=== PATIENT | male | born 1945 | race Caucasian/White ===

== ENCOUNTER 2023-01-14 16:58 | Outpatient (OUT) | payer MEDICARE, SELFPAY ==
--- NOTE | 2023-01-14 | XR_ITS ---
The [address] [address] Patient Name: CHANCE LAMAS MRN: [id number] date: 1945 Sex: M Assigned Patient Location: [facility] Current Patient Location: Accession/Order Number: [id number] Exam Date: 01/14/2023 17:13 Report Date: 01/15/2023 07:12 At the request of: FUENTES SHABAZZ Procedure: XR chest 2V PROCEDURE: XR chest 2V DATE: 01/14/2023 4:13 PM CDT COMPARISONS: 10/07/2016 CLINICAL INDICATION: 77 years Male Cough, SOB, Bronchitis FINDINGS: The cardiomediastinal silhouette and pulmonary vasculature are within normal limits. There is slight perihilar and infrahilar increased interstitial markings, right greater than left stable from previous exam probably representing small amount of chronic lung changes. The lungs are otherwise clear. There is no evidence of pleural effusion or pneumothorax. IMPRESSION: Stable chest. No evidence of lung infiltrates. Electronically authenticated by: ALEXANDRO NELSON Date: 01/15/2023 07:12
== END 2023-01-14 16:59 | disposition home or self-care (01) ==
PROVIDERS: PCP Family Medicine; Visit Provider Nurse Practitioner Family
DX: R06.02 Shortness of breath (principal); R42 Dizziness and giddiness
CPT/HCPCS: 71046

== ENCOUNTER 2023-04-09 12:24 | Outpatient (OUT) | payer MEDICARE, SELFPAY ==
--- NOTE | 2023-04-09 13:03 | CA_ITS ---
Patient: CHANCE LAMAS Exam Date: 04/09/2023 : 1945 Gender:M Ordering : DR GLORIA SAUCEDA Admission #: [id number] Family : Order #: [id number] CLICK HERE TO VIEW EXAM ECHOCARDIOGRAM REPORT PROCEDURE: CA ECHO DOPPLER COMPLETE INDICATIONS: Shortness of breath COMPARISON: None. DESCRIPTION: COMPLETE ECHOCARDIOGRAM Real-time transthoracic echocardiography with 2D, M-mode, spectral and color flow Doppler performed. QUALITY: Technical quality was good. LEFT VENTRICLE: Normal chamber size. Normal left ventricular wall thickness. LV EF: Global left ventricular systolic function is normal. Calculated left ventricular ejection fraction is 60%. DIASTOLIC: Grade I diastolic dysfunction. ATRIAL SEPTUM: Inadequately seen. LEFT ATRIUM: Mild dilatation. RIGHT ATRIUM: Moderate dilatation. RIGHT VENTRICLE: Normal chamber size. Normal right ventricular systolic function. TRICUSPID VALVE: Normal mobility and thickness. No stenosis with mild regurgitation. Mild pulmonary hypertension. RVSP 39mmHg MITRAL VALVE: Normal mobility and thickness. No evidence of mitral valve stenosis. There is no mitral annular calcification. Mild to moderate mitral regurgitation. AORTIC VALVE: Normal trileaflet appearance. No visible sclerosis. Normal leaflet mobility. No evidence of aortic valve stenosis. Mild aortic regurgitation. AORTIC ROOT: Normal diameter and appearance. PULMONIC VALVE: Normal thickness and mobility. No stenosis. No regurgitation. PERICARDIUM: No evidence of pericardial effusion. IVC: Collapses with inspirations. Normal size. CONCLUSION: 1. Global left ventricular systolic function is normal; visually estimated ejection fraction is 55 to 60% 2. The right ventricle is normal in size and systolic function 3. Biatrial enlargement 4. 5. Mild diastolic dysfunction 6. Mild tricuspid regurgitation; mildly elevated right ventricular systolic pressure RVSP 39 mmHg 7. Mild to moderate mitral regurgitation 8. Mild aortic valve regurgitation Adult Echocardiography Procedure Report Left Ventricle LVEDD (3.7 - 5.6 cm): 4.58 cm LVESD (2.2 - 4.0 cm): 2.74 cm LVIVS thickness (0.6 - 1.2 cm): 1.06 cm LVPW thickness (0.5 - 1.0 cm): 0.81 cm e': 0.13 m/s E - e': 5.01 LVOT Max Gradient: 2.45 mm[Hg] LVOT Area (cm2): 0.78 m/s Peak Velocity (LVOT): 0.78 m/s Mean Velocity (LVOT): 0.49 m/s LVOT Diameter 2.12 cm Left Ventricular Ejection Fraction: 59.71 % Left Atrium LA Volume Index (2D A2C): 35.45 ml/m2 Left Atrium Systolic Dimension: 4.64 cm Mitral Valve MV E to A Ratio: 0.65 Mitral Valve A-Wave Peak Velocity: 1.00 m/s Mitral Valve E-Wave Peak Velocity: 0.65 m/s Right Ventricle RV Internal Diastolic Dimension: 2.97 cm Aorta AO Root Diam: 2.90 cm Ascending Ao Diam: 3.06 cm Aortic Valve AoV Area (Peak Alexandre): 1.58 cm2, 1.58 cm2 AoV Area (VTI): 1.91 cm2, 1.91 cm2 Deceleration [place]: 1.31 m/s2 Pressure Half-Time: 898.98 ms Peak Velocity(Antegrade Flow): 1.76 m/s Peak Gradient(Antegrade Flow): 12.32 mm[Hg] Mean Velocity(Antegrade Flow): 1.17 m/s Mean Gradient(Antegrade Flow): 6.37 mm[Hg] Velocity Time Integral: 38.59 cm Tricuspid Valve Peak Velocity (Regurgitant Flow): 2.52 m/s, 2.49 m/s, 2.99 m/s Pulmonic Valve Mean Gradient: 2.36 mm[Hg], 1.96 mm[Hg] Mean Velocity: 0.72 m/s, 0.65 m/s Peak Velocity: 1.00 m/s Peak Gradient: 4.13 mm[Hg], 3.87 mm[Hg] Right Atrium Right Atrium Systolic Pressure: 42.31 ml, 42.31 ml Dictated by: Varinder Pendleton M.D. on 04/13/2023 at 14:42 Approved by: Varinder Pendleton M.D. on 04/13/2023 at 14:51
== END 2023-04-09 12:25 | disposition home or self-care (01) ==
LOC: CARD 12:26
PROVIDERS: PCP Family Medicine; Visit Provider Physician Assistant
DX: R06.02 Shortness of breath (principal); R00.1 Bradycardia, unspecified; I45.10 Unspecified right bundle-branch block; I08.3 Combined rheumatic disorders of mitral, aortic and tricuspid valves
CPT/HCPCS: 93306; 93356

== ENCOUNTER 2023-10-03 22:55 | Observation (INO) | payer MEDICARE, SELFPAY ==
[2023-10-03] VITALS (7 sets, daily range): BP systolic 130–170; BP diastolic 72–78; PULSE 55–67; RESP 12–19; TEMP 36.6; O2SAT 96–99; BMI 29.6
--- NOTE | 2023-10-03 23:13 | ECG_ITS ---
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
--- NOTE | 2023-10-03 23:13 | XR_ITS ---
The [address] [address] Patient Name: CHANCE LAMAS MRN: [id number] date: 1945 Sex: M Assigned Patient Location: ED.MAIN Current Patient Location: ER Accession/Order Number: [id number] Exam Date: 10/03/2023 23:26 Report Date: 10/03/2023 23:41 At the request of: MC SINGH Procedure: XR chest 1V XR chest 1V 10/03/2023 10:26 PM CDT: History: stroke Comparison: None. Technique: 1 view chest Findings: The cardiomediastinal silhouette is upper normal. The lungs are clear without infiltrate, effusion, or pneumothorax. The bones are intact. XR/XR chest 1V Impression: No acute cardiopulmonary process. Electronically authenticated by: CHANCE DRUMMOND Date: 10/03/2023 23:41
--- NOTE | 2023-10-03 23:14 | CT_ITS ---
The [address] [address] Patient Name: CHANCE LAMAS MRN: [id number] date: 1945 Sex: M Assigned Patient Location: ER Current Patient Location: ER Accession/Order Number: [id number] Exam Date: 10/03/2023 23:20 Report Date: 10/03/2023 23:50 At the request of: MC SINGH Procedure: CT stroke head/brain wo con EXAMINATION: CT Head without Contrast TECHNIQUE: Multiple axial noncontrast images of the brain were obtained and reformatted according to the standard protocol. QPP DOCUMENTATION: At least one of the following dose reduction techniques was utilized: Iterative reconstruction, and/or Automatic Exposure Control, and/or mA/kV adjustment based on body size. INDICATION: stroke COMPARISON: 03/20/2020 FINDINGS: Intracranial hemorrhage: No CT evidence of intraparenchymal, intraventricular, or extraaxial hemorrhage. Infarct/Vascular: No evidence of acute transcortical infarctions. There are areas of decreased attenuation scattered throughout the supratentorial white matter. Although nonspecific, these findings are commonly associated with chronic small vessel ischemic disease. Intracranial Mass: No evidence of intracranial mass. CSF Spaces: Mild parenchymal atrophy. Calvarium and Scalp: Unremarkable. Mastoid Air Cells: Clear. Paranasal Sinuses: Visualized paranasal sinuses are clear. Orbits: Orbits are unremarkable. CT/CT stroke head/brain wo con IMPRESSION: 1. No CT evidence of acute intracranial abnormalities. If symptoms persist, further assessment MRI can considered. 2. Subtle areas of decreased attenuation scattered throughout the supratentorial white matter nonspecific but most commonly associated with chronic small vessel ischemic disease. Electronically authenticated by: ZANDER ALVAREZ Date: 10/03/2023 23:50
--- NOTE | 2023-10-03 23:15 | ED_ITS ---
HPI - Neuro Symptoms/Deficit General Chief Complaint: Neuro Symptoms/Deficit Stated Complaint: STROKE SYMPTOMS Time Seen by Provider: 10/03/23 23:13 History of Present Illness HPI Narrative: sitting in a chair and developed numbness left arm and left side of his head. Started about an hour ago. States is better now but doesn't feel he has complete control of the left arm return yet. No headache , chest pain or palpitations. States he gait is normal. now lower extremity weakness. no fever Onset (ago): hour(s) Related Data Home Medications ?Medication ?Instructions ?Recorded ?Confirmed aspirin 81 mg capsule 81 mg PO DAILY 10/03/23 10/03/23 losartan 25 mg tablet 25 mg PO DAILY 10/03/23 10/03/23 Previous Rx's ?Medication ?Instructions ?Recorded clopidogrel 75 mg tablet 75 mg PO QD 30 days #30 tabs 10/04/23 famotidine 20 mg tablet 40 mg (2 x 20 mg) PO QD 30 days 10/04/23 #30 tabs Allergies Allergy/AdvReac Type Severity Reaction Status Date / Time Penicillins Allergy Unknown Verified 10/03/23 23:08 Review of Systems ROS Status of ROS 10 or more systems reviewed and unremark able except as noted in history and below PFSH [facility] Medical History (Updated 10/04/23 @ 12:41 by Jessica Bearden DO) Hypertension ?I10 - Essential (primary) hypertension (ICD-10) Prostate cancer ?C61 - Malignant neoplasm of prostate (ICD-10) Surgical History H/O vasectomy ?Z98.52 - Vasectomy status (ICD-10) Bunion of left foot ?M21.612 - Bunion of left foot (ICD-10) [place] teeth removed ?K08.409 - Partial loss of teeth, unspecified cause, unspecified class (ICD- 10) Hx of prostatectomy ?Z90.79 - Acquired absence of other genital organ(s) (ICD-10) Family History Father Family history of CHF (congestive heart failure) Mother Family history of cancer Family history of hypertension Sister Family history of diabetes mellitus Grandmother Family history of stroke Social History Within the past year, how often did you have a drink containing alcohol: never Score interpretation: A score less than 4 is consistent with normal alcohol consumption. Smoking status: Former smoker Non-prescribed substance use: denies use Previous occupational history: retired Highest level of school completed/degree received: Bachelor's degree Are you now , , , , never or living with a partner: In a typical week, how many times do you talk on the telephone with family, friends, or neighbors: 3 or more times per week How often do you get together with friends or relatives: 3 or more times per week How often do you attend sabianism or caodaism services: 4 or more times per year Little interest or pleasure in doing things: not at all Feeling down, depressed, or hopeless: not at all Feel stressed/tense/nervous/anxious/difficulty sleeping: not at all Do you think of yourself as: straight/heterosexual Gender Identity: male Exam Constitutional Vital Signs, click to edit/add: Last Vital Signs Temp 98 F 10/04/23 11:29 Pulse 58 L 10/04/23 16:00 Resp 20 10/04/23 11:29 BP 152/79 H 10/04/23 11:29 Pulse Ox 95 10/04/23 11:29 O2 Del Method Room Air 10/04/23 11:29 Common normals: no apparent distress, average body habitus, oriented x3, no limitations, healthy appearing and alert [facility] Common normals: normocephalic and head/scalp atraumatic Eye Common normals: PERRL and conjunctivae normal Respiratory Common normals: normal respiratory effort, no retractions, no use of accessory muscles and clear to auscultation bilaterally Cardio Common normals: regular rate, regular rhythm, S1 normal heart sound and S2 normal heart sound GI Common normals: Normal to inspection, nondistended, normoactive bowel sounds present, soft to palpation and non-tender Extremity Common normals: normal to inspection and full ROM Neuro Common normals: oriented x3, CN's II-XII intact bilaterally, moves all extremities and no focal motor deficits (mild ataxia left arm) Psych Appearance: grossly normal Course Course Hospital Course: patient is a very pleasant 77-year-old male with past medical history of HTN, and Prostate cancer. He reports that last night he was watching TV and started to feel that his left arm and left face started to feel numb. he denies putting any pressure on his arms and also felt that his speech and thought process was quite foggy. His agreed to take him to the emergency room for possible stroke workup. At the time of the Emergency Room visit patient did have some decreased strength in the left hand. Initial CTA of the head and neck were negative. Patient denies having a prior stroke history. He does state that he gets dizzy sometimes when he gets up quickly from a bending position. He completed a prostatectomy with chemotherapy and radiation approximately two years ago and has been in a good state of health since then. Kameron states that his cholesterol is always been borderline but cannot tolerate statin medications. He was admitted to the hospitalist service for further treatment, [facility] stroke team was notified last night . Recommended a load of Plavix, and continuing on Plavix, aspirin daily. MRI obtained this morning shows a acute ischemic stroke in the right frontal and parietal lobe. Echocardiogram, carotid artery Dopplers are within normal limits. Patient notes that his left upper arm symptoms have resolved at the time of discharge. He is alert and oriented ?3, no apparent speech defects noted on exam, passed speech and PT/OT evaluations . I discussed all findings today with and patient. I have reviewed Telestroke, lito and Dr. Kelsey notes. They recommended 10 day event monitor that they will mail him and also contact him for close follow up. He is to remain on aspirin and plavix for 3 months, then aspirin only indefinitely. All rx's sent to pharmacy. He is to return to the ED with any worsening signs or symptoms. Vital Signs Vital signs: Vital Signs Temperature 97.8 F 10/03/23 23:08 Pulse Rate 56 L 10/03/23 23:08 Respiratory Rate 18 10/03/23 23:08 Blood Pressure 170/78 H 10/03/23 23:08 Pulse Oximetry 97 10/03/23 23:08 Oxygen Delivery Method Room Air 10/03/23 23:08 Temperature 98 F 10/04/23 11:29 Pulse Rate 58 L 10/04/23 16:00 Respiratory Rate 20 10/04/23 11:29 Blood Pressure 152/79 H 10/04/23 11:29 Pulse Oximetry 95 10/04/23 11:29 Oxygen Delivery Method Room Air 10/04/23 11:29 MDM - Neuro Symptoms/Deficit MDM Narrative Medical decision making narrative: presents with stroke symptoms that started about an hour ago. describes numbness of the left arm and left side of his head. Sensation has returned but does not feel use of the left arm is normal. Control is not as normal as it usually is. Has mild ataxia of the left arm. NIH score 1. CT stroke brain ordered. Patient re examined and his exam is normal. CT brain without acute findings. Discussed with stroke physician at [facility] ([place], [place]) who recommended loading dose of plavix 300mg and CTA brain and neck. CTA neck and brain return unremarkable. Discussed with hospitalist and patient accepted for obs admission Lab Data Labs: Lab Results 10/03/23 10/03/23 Range/Units 23:20 23:34 WBC 6.1 (4.0-11.0) 10^3/uL RBC 4.27 L (4.70-6.10) 10^6/uL Hgb 13.6 L (14.0-18.0) g/dL Hct 40.2 L (42.0-54.0) % MCV 94.1 H (80.0-94.0) fL MCH 31.9 (25.9-34.0) pg MCHC 33.8 (29.9-35.2) g/dL RDW 13.4 (11.0-15.0) % Plt Count 222 (150-450) 10^3/uL MPV 9.0 L (9.5-13.5) fL Neut % (Auto) 61.2 (43.0-75.0) % Lymph % (Auto) 22.7 (20.5-60.0) % Lawrence % (Auto) 12.4 H (1.7-12.0) % Eos % (Auto) 2.8 (0.9-7.0) % Baso % (Auto) 0.7 (0.2-2.0) % Neut # (Auto) 3.8 (1.4-6.5) 10^3/uL Lymph # (Auto) 1.4 (1.2-3.8) 10^3/uL Lawrence # (Auto) 0.8 (0.3-0.8) 10^3/uL Eos # (Auto) 0.2 (0.0-0.7) 10^3/uL Baso # (Auto) 0.0 (0.0-0.1) 10^3/uL Abs Immat Gran (auto) 0.01 (0.00-0.03) 10^3/uL Imm/Tot Granulo (auto) 0.2 (0.0-0.5) % Sodium 139 (136-145) mmol/L Potassium 4.5 (3.5-5.1) mmol/L Chloride 105 (98-107) mmol/L Carbon Dioxide 28.5 (21.0-32.0) mmol/L Anion Gap 10.0 BUN 20.0 H (7.0-18.0) mg/dL Creatinine 0.95 (0.70-1.30) mg/dL Est GFR ( Amer) >60 (>=60) Est GFR (Non-Af Amer) >60 (>=60) BUN/Creatinine Ratio 21.1 Glucose 101 (74-106) mg/dL Calcium 8.9 (8.5-10.1) mg/dL Troponin I High Sens 6.2 (4.0-76.1) pg/mL POC Glucose 130 H (74-106) mg/dL Discharge Plan Discharge Chief Complaint: Neuro Symptoms/Deficit Clinical Impression: TIA (transient ischemic attack) Patient Disposition: Admitted as Observation Discharge Date/Time: 10/04/23 02:30
[2023-10-03 23:28] LABS: Basophils Percent Auto 0.7 % (0.2-2.0); Eosinophils Absolute Auto 0.2 10^3/uL (0.0-0.7); Eosinophils Percent Auto 2.8 % (0.9-7.0); Hematocrit 40.2 % (42.0-54.0); Hemoglobin 13.6 g/dL (14.0-18.0); Immature Granulocytes Abs Auto 0.01 10^3/uL (0.00-0.03); Immature Granulocytes Pct Auto 0.2 % (0.0-0.5); Lymphocytes Absolute Auto 1.4 10^3/uL (1.2-3.8); Lymphocytes Percent Auto 22.7 % (20.5-60.0); Mean Corpuscular HGB Conc 33.8 g/dL (29.9-35.2); Mean Corpuscular Hemoglobin 31.9 pg (25.9-34.0); Mean Corpuscular Volume 94.1 fL (80.0-94.0); Monocytes Absolute Auto 0.8 10^3/uL (0.3-0.8); Monocytes Percent Auto 12.4 % (1.7-12.0); Neutrophils Absolute Auto 3.8 10^3/uL (1.4-6.5); Neutrophils Percent Auto 61.2 % (43.0-75.0); Platelet Count 222 10^3/uL (150-450); Red Blood Count 4.27 10^6/uL (4.70-6.10); Red Cell Distribution Width 13.4 % (11.0-15.0); White Blood Count 6.1 10^3/uL (4.0-11.0)
[2023-10-03 23:35] LABS: Glucometer 130 mg/dL (74-106)
[2023-10-03 23:48] LABS: BUN Creatinine Ratio 21.1; Calcium 8.9 mg/dL (8.5-10.1); Carbon Dioxide 28.5 mmol/L (21.0-32.0); Chloride 105 mmol/L (98-107); Estimated GFR (African America >60 (>=60); Estimated GFR (Non-African Ame >60 (>=60); Glucose 101 mg/dL (74-106); Potassium 4.5 mmol/L (3.5-5.1); Sodium 139 mmol/L (136-145); Troponin I High Sensitivity 6.2 pg/mL (4.0-76.1)
[2023-10-04] VITALS (23 sets, daily range): BP systolic 126–168; BP diastolic 63–88; PULSE 52–63; RESP 13–24; TEMP 36.3–36.6; O2SAT 95–100; BMI 30.5
--- NOTE | 2023-10-04 00:25 | CT_ITS ---
The [address] [address] Patient Name: CHANCE LAMAS MRN: [id number] date: 1945 Sex: M Assigned Patient Location: ER Current Patient Location: Accession/Order Number: [id number] Exam Date: 10/04/2023 00:45 Report Date: 10/04/2023 01:55 At the request of: MC SINGH Procedure: CT angio head EXAM: CT angio head, CT angio neck CT angio head, CT angio neck 10/03/2023 11:45 PM CDT: History: TIA Carotid artery stenosis and occlusion. Stroke. Neurological symptoms and deficits. Comparison: None. Technique: IV contrast-enhanced CTA imaging of the head and neck was performed. Multiplanar 3-D MIP reformatted images are provided from the acquired data set. Percent vascular stenoses are calculated per NASCENT criteria. This CT exam was performed using one or more of the following dose reduction techniques: Automated exposure control, adjustment of the mA and/or KV according to patient size, or use of iterative reconstruction technique. Findings: CTA NECK: The lung apices are clear. The nonvascular soft tissues of the neck demonstrate no acute abnormality. The aortic arch is intact with a 3 vessel configuration. Bilateral common carotid arteries and carotid bifurcation are patent without stenosis. There is mild atherosclerotic plaque in the carotid bifurcation bilaterally as well as within the proximal cervical internal carotid arteries bilaterally. There is no hemodynamically significant carotid artery stenosis. The left vertebral artery is dominant. The vertebral arteries are patent bilaterally without significant stenosis or dissection. CTA HEAD: The bilateral intracranial internal carotid, middle cerebral, and anterior cerebral arteries are all smooth and patent without stenosis, aneurysm, or large vessel occlusion. The vertebral arteries unite to form a normal caliber basilar artery. The posterior cerebral arteries are smooth and patent bilaterally without stenosis, aneurysm, or large vessel occlusion. CT/CT angio head Impression: No significant abnormality of the great vessels of the head or neck. Electronically authenticated by: CHANCE DRUMMOND Date: 10/04/2023 01:55
--- NOTE | 2023-10-04 00:25 | CT_ITS ---
The [address] [address] Patient Name: CHANCE LAMAS MRN: [id number] date: 1945 Sex: M Assigned Patient Location: ER Current Patient Location: Accession/Order Number: [id number] Exam Date: 10/04/2023 00:45 Report Date: 10/04/2023 01:55 At the request of: MC SINGH Procedure: CT angio neck EXAM: CT angio head, CT angio neck CT angio head, CT angio neck 10/03/2023 11:45 PM CDT: History: TIA Carotid artery stenosis and occlusion. Stroke. Neurological symptoms and deficits. Comparison: None. Technique: IV contrast-enhanced CTA imaging of the head and neck was performed. Multiplanar 3-D MIP reformatted images are provided from the acquired data set. Percent vascular stenoses are calculated per NASCENT criteria. This CT exam was performed using one or more of the following dose reduction techniques: Automated exposure control, adjustment of the mA and/or KV according to patient size, or use of iterative reconstruction technique. Findings: CTA NECK: The lung apices are clear. The nonvascular soft tissues of the neck demonstrate no acute abnormality. The aortic arch is intact with a 3 vessel configuration. Bilateral common carotid arteries and carotid bifurcation are patent without stenosis. There is mild atherosclerotic plaque in the carotid bifurcation bilaterally as well as within the proximal cervical internal carotid arteries bilaterally. There is no hemodynamically significant carotid artery stenosis. The left vertebral artery is dominant. The vertebral arteries are patent bilaterally without significant stenosis or dissection. CTA HEAD: The bilateral intracranial internal carotid, middle cerebral, and anterior cerebral arteries are all smooth and patent without stenosis, aneurysm, or large vessel occlusion. The vertebral arteries unite to form a normal caliber basilar artery. The posterior cerebral arteries are smooth and patent bilaterally without stenosis, aneurysm, or large vessel occlusion. CT/CT angio neck Impression: No significant abnormality of the great vessels of the head or neck. Electronically authenticated by: CHANCE DRUMMOND Date: 10/04/2023 01:55
[2023-10-04] MEDS: CLOPIDOGREL BISULFATE 75 MG TABLET 300 MG PO (00:32)
[2023-10-04 05:33] LABS: Basophils Absolute Auto 0.1 10^3/uL (0.0-0.1); Basophils Percent Auto 1.1 % (0.2-2.0); Eosinophils Absolute Auto 0.2 10^3/uL (0.0-0.7); Eosinophils Percent Auto 3.5 % (0.9-7.0); Hematocrit 38.9 % (42.0-54.0); Immature Granulocytes Abs Auto 0.01 10^3/uL (0.00-0.03); Immature Granulocytes Pct Auto 0.2 % (0.0-0.5); Lymphocytes Absolute Auto 1.2 10^3/uL (1.2-3.8); Lymphocytes Percent Auto 25.9 % (20.5-60.0); Mean Corpuscular HGB Conc 33.4 g/dL (29.9-35.2); Mean Corpuscular Hemoglobin 31.3 pg (25.9-34.0); Mean Corpuscular Volume 93.5 fL (80.0-94.0); Mean Platelet Volume 9.3 fL (9.5-13.5); Monocytes Absolute Auto 0.6 10^3/uL (0.3-0.8); Monocytes Percent Auto 13.2 % (1.7-12.0); Neutrophils Absolute Auto 2.6 10^3/uL (1.4-6.5); Neutrophils Percent Auto 56.1 % (43.0-75.0); Platelet Count 217 10^3/uL (150-450); Red Blood Count 4.16 10^6/uL (4.70-6.10); Red Cell Distribution Width 13.4 % (11.0-15.0); White Blood Count 4.6 10^3/uL (4.0-11.0)
[2023-10-04 05:59] LABS: Alanine Aminotransferase 20 U/L (16-63); Albumin Level 3.1 g/dL (3.4-5.0); Alkaline Phosphatase 104 U/L (46-116); Anion Gap 14.5; Aspartate Amino Transferase 21 U/L (15-37); BUN Creatinine Ratio 23.1; Bilirubin Total 0.3 mg/dL (0.2-1.0); Calcium 8.5 mg/dL (8.5-10.1); Carbon Dioxide 25.6 mmol/L (21.0-32.0); Chloride 105 mmol/L (98-107); Chol HDL Ratio 3.7; Cholesterol 144 mg/dL (<=200); Estimated GFR (African America >60 (>=60); Estimated GFR (Non-African Ame >60 (>=60); Globulin 3.1 g/dL; Glucose 89 mg/dL (74-106); HDL Cholesterol 39 mg/dL (40-60); Potassium 4.1 mmol/L (3.5-5.1); Sodium 141 mmol/L (136-145); Thyroid Stimulating Hormone 2.919 uIU/mL (0.358-3.740); Total Protein 6.2 g/dL (6.4-8.2); Triglycerides 71 mg/dL (<=150); VLDL CHOLESTEROL 14.2 mg/dL
[2023-10-04 06:01] LABS: Estimated Average Glucose 108 mg/dL; Glycohemoglobin A1C 5.4 % (4.5-6.2)
--- NOTE | 2023-10-04 08:00 | MR_ITS ---
The [address] [address] Patient Name: CHANCE LAMAS MRN: [id number] date: 1945 Sex: M Assigned Patient Location: MS Current Patient Location: MS Accession/Order Number: [id number] Exam Date: 10/04/2023 07:45 Report Date: 10/04/2023 08:45 At the request of: SHANTA HALL Procedure: MR head/brain wo con MR head/brain wo con, 10/04/2023 7:45 AM EDT INDICATION: TIA r/o CVA COMPARISON: Prior CT and CTA of the head dated 10/03/2023 and changes follow up axis 10/04/2023 TECHNIQUE: Multiplanar, multisequential MRI images of brain were obtained without injection of contrast. FINDINGS: The cerebral sulci as well as ventricular system are appropriate for age. There are foci of restricted diffusion in the right frontal and parietal lobe in pre and postcentral gyri most likely consistent with acute nonhemorrhagic CVA. Hyperintensities on T2 and FLAIR images in the cassidy radiata and centrum semiovale with sparing of U fibers are nonspecific, statistically most likely consistent with microvascular ischemic changes. There is no intracranial mass, mass effect, midline shift, intra or extra-axial fluid collection or large hemorrhage. Normal flow-void in the intracranial vessels is noted. The visualized portions of orbits, mastoid air cells as well as paranasal sinuses are unremarkable. MR/MR head/brain wo con IMPRESSION: Foci of acute nonhemorrhagic CVA in the right frontal and parietal lobes in the pre and postcentral gyri. Electronically authenticated by: ELLA MAURER Date: 10/04/2023 08:45
--- NOTE | 2023-10-04 08:15 | P.HP_ITS ---
HPI H&P: HPI History of Present Illness Chief complaint: TIA Narrative: patient is a very pleasant 77-year-old male with past medical history of HTN, and Prostate cancer. He reports that last night he was watching TV and started to feel that his left arm and left face started to feel numb. he denies putting any pressure on his arms and also felt that his speech and thought process was quite foggy. His agreed to take him to the emergency room for possible stroke workup. At the time of the Emergency Room visit patient did have some decreased strength in the left hand. Initial CTA of the head and neck were negative. Patient denies having a prior stroke history. He does state that he gets dizzy sometimes when he gets up quickly from a bending position. He completed a prostatectomy with chemotherapy and radiation approximately two years ago and has been in a good state of health since then. Kameron states that his cholesterol is always been borderline but cannot tolerate statin medications. He was admitted to the hospitalist service for further treatment,[facility] stroke team was notified last night . Recommended a load of Plavix, and continuing on Plavix, aspirin daily. MRI obtained this morning shows a acute ischemic stroke in the right frontal and parietal lobe. Echocardiogram, carotid artery Dopplers are pending at this time. Patient notes that his left upper arm symptoms have resolved this morning. He is alert and oriented ?3, no apparent speech defects noted on exam. I discussed findings of MRI with patient. And we will proceed with tell us stroke evaluation. Opioid HPI Opioid Management Most Recent Opioid Data: Last Pain Assessment 10/04/23 11:53 Last ORT Total Score 0 10/04/23 02:37 Last ORT Risk Category Low Risk 10/04/23 02:37 Review of Systems ROS Narrative ROS: a complete review of systems were reviewed with patient and are positive as below or listed in History of Chief Complaint. General: no fever, chills, night sweats Head: no headache, trauma, visual changes, nausea or vomiting Skin: no reported rashes, itching or sores Eyes: no blurriness of vision Ears: no reported hearing loss, vertigo, earache, or tinnitus Throat: no sore throat, hoarseness, swelling of neck, or tongue pain Heart: no chest pain Lungs: no shortness of breath or cough GI: no diarrhea or vomiting/nausea Urinary: no urinary urgency, frequency or pain Neuro: numbness and tingling of the left hand/arm HEM: no bleeding issues or bruising ENDO: no thyroid problems Psych: no anxiety or depression PFSH PFSH Medical History (Updated 10/04/23 @ 12:41 by Jessica Bearden DO) Hypertension ?I10 - Essential (primary) hypertension (ICD-10) Prostate cancer ?C61 - Malignant neoplasm of prostate (ICD-10) Surgical History H/O vasectomy ?Z98.52 - Vasectomy status (ICD-10) Bunion of left foot ?M21.612 - Bunion of left foot (ICD-10) [place] teeth removed ?K08.409 - Partial loss of teeth, unspecified cause, unspecified class (ICD- 10) Hx of prostatectomy ?Z90.79 - Acquired absence of other genital organ(s) (ICD-10) Family History Father Family history of CHF (congestive heart failure) Mother Family history of cancer Family history of hypertension Sister Family history of diabetes mellitus Grandmother Family history of stroke Social History Within the past year, how often did you have a drink containing alcohol: never Score interpretation: A score less than 4 is consistent with normal alcohol consumption. Smoking status: Former smoker Non-prescribed substance use: denies use Previous occupational history: retired Highest level of school completed/degree received: Bachelor's degree Are you now , , , , never or living with a partner: In a typical week, how many times do you talk on the telephone with family, friends, or neighbors: 3 or more times per week How often do you get together with friends or relatives: 3 or more times per week How often do you attend congregation or zoroastrian services: 4 or more times per year Little interest or pleasure in doing things: not at all Feeling down, depressed, or hopeless: not at all Feel stressed/tense/nervous/anxious/difficulty sleeping: not at all Do you think of yourself as: straight/heterosexual Gender Identity: male Meds Home Medications and Allergies Home Medications ?Medication ?Instructions ?Recorded ?Confirmed ?Type aspirin 81 mg capsule 81 mg PO DAILY 10/03/23 10/03/23 History losartan 25 mg tablet 25 mg PO DAILY 10/03/23 10/03/23 History omeprazole magnesium 20 mg 20 mg PO DAILY 10/04/23 10/04/23 History tablet,delayed release (Prilosec OTC) Allergies Allergy/AdvReac Type Severity Reaction Status Date / Time Penicillins Allergy Unknown Verified 10/03/23 23:08 Exam Narrative Exam Narrative: General: Patient is alert, and oriented to person, place and time with normal affect, proper hygiene Skin: no visible rashes, or ulcers Head: atraumatic, acephalic Eyes: PERRLA, no nystagmus present, conjunctiva clear, no scleral icterus Ears: normal gross auditory acuity Nose: symmetric, no discharge, no maxillary or frontal sinus tenderness Neck: no masses palpated, normal thyroid, no JVD or audible carotid bruits Heart: Normal rate and rhythm, no murmurs/rubs/gallops Lungs: no audible wheezes, crackles and normal breath sounds all lung santamaria Abdomen: Normal audible bowel sounds, no distension, No palpable masses, no organomegaly, no rebound/guarding/ or rigidity Musculoskeletal: no swelling bilateral lower extremities Vascular: Normal carotid, radial, femoral, posterior tibial, and dorsalis pedis pulses Lymph: no supraclavicular, axillary, or anterior/posterior cervical adenopathy Neuro: CN II-X grossly intact, normal sensation upper and lower extremities with no pronator drift, 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 Constitutional Vital Signs, click to edit/add: Last Vital Signs Temp 97.3 F L 10/04/23 07:37 Pulse 53 L 10/04/23 07:37 Resp 20 10/04/23 07:37 BP 154/79 H 10/04/23 07:37 Pulse Ox 97 10/04/23 07:37 O2 Del Method Room Air 10/04/23 07:37 Results Labs Labs: Short CBC 10/03/23 10/04/23 Range/Units 23:20 04:18 WBC 6.1 4.6 (4.0-11.0) 10^3/uL Hgb 13.6 L 13.0 L (14.0-18.0) g/dL Hct 40.2 L 38.9 L (42.0-54.0) % Plt Count 222 217 (150-450) 10^3/uL BMP 10/03/23 10/04/23 23:20 04:18 Sodium 139 141 Potassium 4.5 4.1 Chloride 105 105 Carbon Dioxide 28.5 25.6 BUN 20.0 H 21.0 H Creatinine 0.95 0.91 Glucose 101 89 Calcium 8.9 8.5 Liver Function 10/04/23 Range/Units 04:18 Total Bilirubin 0.3 (0.2-1.0) mg/dL AST 21 (15-37) U/L ALT 20 (16-63) U/L Alkaline Phosphatase 104 (46-116) U/L Albumin 3.1 L (3.4-5.0) g/dL Assessment and Plan Assessment and Plan (1) Ischemic cerebral stroke due to small artery occlusion: Assessment and Plan: patient was admitted to telemetry, patient received a Plavix load and will continue Plavix 75 mg once a day, along with aspirin. Was going to give patient Lipitor, but patient says he has tried several statins and did not tolerate and does not want to take it. Fasting lipid panel showed total cholesterol one forty-four, LDL ninety-one and HDL thirty-nine and triglycerides of seventy-one. Hemoglobin A1c was 5.4. BUN/creatinine were within normal limits. Echocardiogram is pending. CTA of head and neck were within normal limits. MRI findings of an acute ischemic stroke in the right frontal and parietal lobes seen on MRI. Carotid artery ultrasounds showed no significant stenosis. We'll follow with telestroke and appreciate their recommendations. (2) Hypertension: Assessment and Plan: blood pressures have been in the 150s over 70s, continue losartan Qualifiers: Hypertension type: primary hypertension Qualified Code(s): I10 - Essential (primary) hypertension (3) Prostate cancer: Assessment and Plan: patient has been in remission for two years. Plan patient is full code Patient is in observation status and is not expected to cross more than two midnights for his necessary medical care.
[2023-10-04 08:49] LABS: Troponin I High Sensitivity 6.6 pg/mL (4.0-76.1)
[2023-10-04] MEDS: ASPIRIN 81 MG TABLET.DR PO (09:01)
[2023-10-04] MEDS: LOSARTAN POTASSIUM 25 MG TABLET PO (09:01)
--- NOTE | 2023-10-04 10:22 | PC.NURSE ---
[facility] Telestroke [facility] called. Nurse states that pt is on their list, and they will call you when they are available to see pt on screen.
--- NOTE | 2023-10-04 10:58 | CA_ITS ---
Patient Name: CHANCE LAMAS MR#: [id number] : 1945 Exam Date: 10/04/2023 Ordering Doctor: Jessica Bearden . ECHOCARDIOGRAM REPORT PROCEDURE: CA ECHO LIMITED INDICATIONS: Acute stroke COMPARISON: None. DESCRIPTION: Limited ECHOCARDIOGRAM Real-time transthoracic echocardiography with 2D and M-mode performed. QUALITY: Technical quality was good. Limited echocardiogram per physician order. LEFT VENTRICLE: Normal chamber size. Proximal septal hypertrophy (sigmoid septum). LV EF: Normal left ventricular ejection fraction, (>55%). DIASTOLIC: ATRIAL SEPTUM: Intact atrial septum. Agitated saline contrast does not reveal an intra-cardiac shunt. LEFT ATRIUM: Mildly dilated. RIGHT ATRIUM: Mildly dilated. RIGHT VENTRICLE: Normal chamber size. TRICUSPID VALVE: Normal mobility and thickness. MITRAL VALVE: Normal mobility and thickness. AORTIC VALVE: Normal trileaflet appearance. Normal leaflet mobility. AORTIC ROOT: Normal diameter and appearance. PULMONIC VALVE: Normal thickness and mobility. PERICARDIUM: No evidence of pericardial effusion. IVC: Collapses with inspirations. IVC is normal in size. PLEURA: CONCLUSION: 1. Normal ventricular systolic function. LVEF is 55-60%. 2. Mild biatrial dilatation. 3. No evidence of intracardiac shunt by agitated saline contrast injections. 4. Limited study performed with no Doppler interrogation, as requested. Adult Echocardiography Procedure Report Left Ventricle LVEDD (3.7 - 5.6 cm): 4.30 cm LVESD (2.2 - 4.0 cm): 2.54 cm LVIVS thickness (0.6 - 1.2 cm): 1.51 cm LVPW thickness (0.5 - 1.0 cm): 0.82 cm LVOT Diameter 2.28 cm Left Atrium LA Volume Index (2D A2C): 26.23 ml/m2 Left Atrium Systolic Dimension: 3.88 cm Mitral Valve Right Ventricle Aorta AO Root Diam: 3.10 cm Ascending Ao Diam: 3.04 cm Aortic Valve Tricuspid Valve Pulmonic Valve Right Atrium Right Atrium Systolic Pressure: 28.28 ml, 28.28 ml Dictated by: Erasto Stephens M.D. on 10/04/2023 at 14:31 Approved by: Erasto Stephens M.D. on 10/04/2023 at 14:34
--- NOTE | 2023-10-04 11:00 | US_ITS ---
[address] [address] Patient Name: CHANCE LAMAS MRN: [id number] date: 1945 Sex: M Assigned Patient Location: [place] Current Patient Location: [place] Accession/Order Number: [id number] Exam Date: 10/04/2023 11:00 Report Date: 10/04/2023 11:56 At the request of: PATRICK STREETER Procedure: US carotid duplex BI EXAMINATION: US carotid duplex BI HISTORY: TIA COMPARISON: No relevant comparison available. TECHNIQUE: Duplex Doppler ultrasound analysis of carotid and vertebral arteries. . Bilateral carotid arterial duplex examination was performed using B-mode, color flow and spectral analysis. Carotid stenosis is reported according to validated velocity parameters, similar to NASCET criteria. FINDINGS: RIGHT CAROTID ARTERY Moderate atherosclerotic plaque Subclavian: PSV: 127.6 cm/s cm/s EDV: 0.0 cm/s cm/s CCA: Prox: PSV: 88.8 cm/s cm/s EDV: 11.1 cm/s cm/s Mid: PSV: 81.4 cm/s cm/s EDV: 11.5 cm/s cm/s Distal: PSV: 78.8 cm/s cm/s EDV: 10.2 cm/s cm/s BULB: PSV: 64.6 cm/s cm/s EDV: 16.7 cm/s cm/s ICA: Prox: PSV: 119.4 cm/s cm/s EDV: 32.1 cm/s cm/s Mid: PSV: 117.7 cm/s cm/s EDV: 30.5 cm/s cm/s Distal: PSV: 147.6 cm/s cm/s EDV: 29.4 cm/s cm/s ECA: PSV: 113.4 cm/s cm/s EDV: 0.0 cm/s cm/s VERTEBRAL: PSV: 52.5 cm/s cm/s EDV: 9.8 cm/s cm/s, antegrade ICA/CCA ratio: PSV: 1.9 EDV: 2.9 LEFT CAROTID ARTERY moderate atherosclerotic plaque Subclavian: PSV: 137.2 cm/s cm/s EDV: 0.0 cm/s CCA: Prox: PSV: 125.3 cm/s cm/s EDV: 16.9 cm/s Mid: PSV: 87.5 cm/s cm/s EDV: 12.4 cm/s Distal: PSV: 87.5 cm/s cm/s EDV: 12.4 cm/s BULB: PSV: 72.0 cm/s cm/s EDV: 12.4 cm/s ICA: Prox: PSV: 61.6 cm/s cm/s EDV: 17.6 cm/s Mid: PSV: 90.0 cm/s cm/s EDV: 22.8 cm/s Distal: PSV: 75.8 cm/s cm/s EDV: 18.9 cm/s ECA: PSV: 97.8 cm/s cm/s EDV: 0.0 cm/s VERTEBRAL: PSV: 57.7 cm/s cm/s EDV: 16.3 cm/s , antegrade ICA/CCA ratio: PSV: 1.0 EDV: 1.8 US/US carotid duplex BI IMPRESSION: 0-49% flow stenosis bilateral internal carotid arteries Spectral Doppler US Thresholds (Reference: Angelito EG, et al. Radiology 2000; 214:247-252) Stenosis (%) PSV (cm/sec) VICA/VCCA 0-49 <150 <2.5 50-69 150-225 2.5-4.0 >70 >225 >4.0 Electronically authenticated by: RAJEEV BANDA Date: 10/04/2023 11:56
--- NOTE | 2023-10-04 11:34 | CM.NOTE ---
Rounds made with Dr. Bearden, discussed with pt about MRI findings and consult for telestroke today for further recommendations. PT, OT and speech will also evaluate pt.
[2023-10-04] MEDS: FAMOTIDINE 20 MG TABLET 40 MG PO (14:25)
--- NOTE | 2023-10-04 15:58 | P.DS_ITS ---
DS: Providers Provider Date of admission: 10/04/23 02:34 Primary care physician: VIRGEN MADRID Admitting clinician: Jessica Bearden Consults: 10/04/23 Consult to TeleNeurology Routine Reason for consultation: R/O CVA Has provider been notified: Yes Speech Therapy Eval and Treat Routine Reason for consultation: CVA 10/04/23 02:16 Occupational Therapy Eval and Treat Routine Reason for consultation: TIA; left sided numbness Physical Therapy Eval and Treat Routine Reason for consultation: TIA; left sided numbness Discharging clinician: Jessica Bearden DS: Diagnosis Discharge Diagnosis (1) Ischemic cerebral stroke due to small artery occlusion: (2) Hypertension: Qualifiers: Hypertension type: primary hypertension Qualified Code(s): I10 - Essential (primary) hypertension (3) Prostate cancer: DS: Summary Hospital Course Hospital Course: patient is a very pleasant 77-year-old male with past medical history of HTN, and Prostate cancer. He reports that last night he was watching TV and started to feel that his left arm and left face started to feel numb. he denies putting any pressure on his arms and also felt that his speech and thought process was quite foggy. His agreed to take him to the emergency room for possible stroke workup. At the time of the Emergency Room visit patient did have some decreased strength in the left hand. Initial CTA of the head and neck were negative. Patient denies having a prior stroke history. He does state that he gets dizzy sometimes when he gets up quickly from a bending position. He completed a prostatectomy with chemotherapy and radiation approximately two years ago and has been in a good state of health since then. Kameron states that his cholesterol is always been borderline but cannot tolerate statin medications. He was admitted to the hospitalist service for further treatment, [facility] stroke team was notified last night . Recommended a load of Plavix, and continuing on Plavix, aspirin daily. MRI obtained this morning shows a acute ischemic stroke in the right frontal and parietal lobe. Echocardiogram, carotid artery Dopplers are within normal limits. Patient notes that his left upper arm symptoms have resolved at the time of discharge. He is alert and oriented ?3, no apparent speech defects noted on exam, passed speech and PT/OT evaluations . I discussed all findings today with and patient. I have reviewed Telestroke, lito and Dr. Kelsey notes. They recommended 10 day event monitor that they will mail him and also contact him for close follow up. He is to remain on aspirin and plavix for 3 months, then aspirin only indefinitely. All rx's sent to pharmacy. He is to return to the ED with any worsening signs or symptoms. Status at Discharge Functional status at discharge: independent ambulation Overall status at discharge: patient is back to baseline Time Spent with Patient Time attestation: Total time spent providing and/or coordinating discharge services: Time spent: greater than 30 minutes Quality: Stroke Onset of Symptoms Date: 10/03/23 Onset of Symptoms Time: 22:10 Symptom Onset Unknown: No Exam Narrative Exam Narrative: no change on exam from H&P dated 10/04/23 Constitutional Vital Signs, click to edit/add: Last Vital Signs Temp 98 F 10/04/23 11:29 Pulse 56 L 10/04/23 12:00 Resp 20 10/04/23 11:29 BP 152/79 H 10/04/23 11:29 Pulse Ox 95 10/04/23 11:29 O2 Del Method Room Air 10/04/23 11:29 DS: Data Data Completed and Pending Labs on day of discharge: Labs from last 24 hours 10/04/23 10/03/23 10/03/23 04:18 23:34 23:20 WBC 4.6 6.1 RBC 4.16 L 4.27 L Hgb 13.0 L 13.6 L Hct 38.9 L 40.2 L MCV 93.5 94.1 H MCH 31.3 31.9 MCHC 33.4 33.8 RDW 13.4 13.4 Plt Count 217 222 MPV 9.3 L 9.0 L Neut % (Auto) 56.1 61.2 Lymph % (Auto) 25.9 22.7 Charles % (Auto) 13.2 H 12.4 H Eos % (Auto) 3.5 2.8 Baso % (Auto) 1.1 0.7 Neut # (Auto) 2.6 3.8 Lymph # (Auto) 1.2 1.4 Charles # (Auto) 0.6 0.8 Eos # (Auto) 0.2 0.2 Baso # (Auto) 0.1 0.0 Abs Immat Gran (auto) 0.01 0.01 Imm/Tot Granulo (auto) 0.2 0.2 Sodium 141 139 Potassium 4.1 4.5 Chloride 105 105 Carbon Dioxide 25.6 28.5 Anion Gap 14.5 10.0 BUN 21.0 H 20.0 H Creatinine 0.91 0.95 Est GFR ( Amer) >60 >60 Est GFR (Non-Af Amer) >60 >60 BUN/Creatinine Ratio 23.1 21.1 Glucose 89 101 Estimat Average Glucose 108 Hemoglobin A1c 5.4 Calcium 8.5 8.9 Total Bilirubin 0.3 AST 21 ALT 20 Alkaline Phosphatase 104 Troponin I High Sens 6.6 6.2 Total Protein 6.2 L Albumin 3.1 L Globulin 3.1 Albumin/Globulin Ratio 1.0 Triglycerides 71 Cholesterol 144 LDL Cholesterol, Calc 91.0 VLDL Cholesterol 14.2 HDL Cholesterol 39 L Cholesterol/HDL Ratio 3.7 TSH 2.919 POC Glucose 130 H Discharge Plan Discharge Disposition: Home, Self-Care Discharge Medications: New clopidogrel 75 mg Tablet 75 mg PO QD 30 Days Qty: 30 0RF famotidine 20 mg Tablet 40 mg PO QD 30 Days Qty: 30 0RF Continued losartan 25 mg tablet 25 mg PO DAILY aspirin 81 mg capsule 81 mg PO DAILY Discontinued omeprazole magnesium [Prilosec OTC] 20 mg tablet,delayed release (DR/EC) 20 mg PO DAILY Activity: increase activity as tolerated Diet: advance to your usual diet Print Language: Vietnamese Patient Instructions: Famotidine (By mouth), Clopidogrel (By mouth) (Plavix), Transient Ischemic Attack (DC) Forms: Portal Instructions Follow Up Appointments: October 10 @ 1pm with Dr. Madrid [phone] [facility] stroke team will mail you the 30 day event monitor. Please follow all directions. (They should contact you regarding follow up appointment with their team) aspirin and plavix for 3 months, then aspirin indefinitely
--- NOTE | 2023-10-04 16:03 | SWNOTE1 ---
SW checked PT/OT/ST notes and no needs were identified. No SW consult. At this time no identified needs at discharge. SW to follow as needed.
--- NOTE | 2023-10-06 16:13 | CM.DCFOLLOWU ---
1st attempt discharge follow up call made on 10/06/23, no answer
--- NOTE | 2023-10-07 15:54 | CM.DCFOLLOWU ---
Person spoke with: patient How are you feeling? well How is your pain? no pain Did you understand your discharge instructions? yes Do you have any questions about your discharge instructions? no Were you given any prescriptions at discharge? yes Were you able to get your prescriptions filled? yes Do you understand how to take your medications as ordered? yes Do you have any questions about your follow up appointment and do you plan to keep your follow up appointment? no questions, reviewed follow up and also event monitor, advised to call with any questions once event monitor is received in mail Is there anything else that you would like to discuss? no Questions/Comments/Concerns/Other: N.A
== END 2023-10-04 16:39 | disposition home or self-care (01) ==
LOC: ER 10-04 02:10 → MS 10-04 02:35
PROVIDERS: Registered Nurse; Admitting Provider Family Medicine; Emergency Provider Internal Medicine; PCP Family Medicine; Visit Provider Family Medicine
DX: I63.81 Other cerebral infarction due to occlusion or stenosis of small artery (principal); I10 Essential (primary) hypertension; Z85.46 Personal history of malignant neoplasm of prostate; R47.89 Other speech disturbances; R29.701 NIHSS score 1; Z90.79 Acquired absence of other genital organ(s); Z87.891 Personal history of nicotine dependence; Z79.82 Long term (current) use of aspirin; Z79.899 Other long term (current) drug therapy
CPT/HCPCS: 36415; 70450; 70496; 70498; 70551; 71045; 80048; 80053; 80061; 82948; 83036; 84443; 84484; 85025; 92522; 92610; 93005; 93308; 93880; 97161; 97165; 99285; G0378; Q3014; Q9967

== ENCOUNTER 2025-04-24 11:38 | Outpatient (OUT) | payer MEDICARE, SELFPAY ==
[2025-04-24 13:19] LABS: Cholesterol 185 mg/dL (<=200); HDL Cholesterol 51 mg/dL (40-60); Triglycerides 62 mg/dL (<=150); VLDL CHOLESTEROL 12.4 mg/dL
== END 2025-04-24 11:39 | disposition home or self-care (01) ==
PROVIDERS: PCP Family Medicine; Visit Provider Family Medicine
DX: Z00.00 Encounter for general adult medical examination without abnormal findings (principal); E78.00 Pure hypercholesterolemia, unspecified
CPT/HCPCS: 36415; 80061